=== PATIENT | male | born 2000 ===

== ENCOUNTER 2022-03-18 05:37 | Day surgery (SDC) | payer OTHER ==
[~2022-03-18] VITALS: Ht 177.8 cm; Wt 77.1 kg
[2022-03-18] MEDS ORDERED: ULTRAM50 MG PO (09:30)
[2022-03-18] MEDS ORDERED: KETO10TA2 PO (09:30)
[2022-03-18] MEDS ORDERED: TYLENOL ARTHRI650 MG PO (09:30)
[2022-03-18] MEDS ORDERED: MIRALAX17 GM PO (09:30)
== END 2022-03-18 11:55 | disposition home or self-care (01) ==
LOC: CIR.AMB 05:37
PROVIDERS: ATTEND Surgery
DX: K40.90 Unilateral inguinal hernia, without obstruction or gangrene, not specified as recurrent (principal); K42.9 Umbilical hernia without obstruction or gangrene; Z20.822 Contact with and (suspected) exposure to COVID-19
CPT/HCPCS: 49650; 49652; C1781